=== PATIENT | female | born 1960 | race Caucasian/White ===

== ENCOUNTER 2016-11-20 20:36 | Emergency (ER) | payer OTHER ==
[~2016-11-20] VITALS: Ht 157.5 cm; Wt 54.5 kg
[2016-11-20 20:41] VITALS: BP 128/76; PULSE 107; RESP 16; O2SAT 96
[2016-11-20] MEDS ORDERED: SODIUM CHLOR 0.9% 1000 ML INJ 1,000 ML IV SCH (20:45)
[2016-11-20 20:51] VITALS: O2SAT 98
[2016-11-20] MEDS: SODIUM CHLORIDE 0.9% FLUSH 5 ML FLUSH IV FLUSH PRN (21:03)
--- NOTE | 2016-11-20 21:21 | RADRPT ---
EXAM DATE/TIME: 11/20/2016 21:07 [facility] COMPARISON: No previous studies available for comparison. INDICATIONS : Syncope, possible overdose. MEDICAL HISTORY : Unobtainable. SURGICAL HISTORY : Unobtainable. ENCOUNTER: Initial ACUITY: PAIN SCORE: Non-responsive. LOCATION: Bilateral chest FINDINGS: A single view of the chest demonstrates the lungs to be symmetrically aerated without evidence of mas s, infiltrate or effusion. The cardiomediastinal contours are unremarkable. Osseous structures are intact. CONCLUSION: No evidence of acute cardiopulmonary disease. Jose G Christy MD on November 20, 2016 at 21:19 Board Certified Radiologist. This report was verified electronically.
[2016-11-20 21:29] LABS: APTT (PATIENT) 28.8 SEC (24.3-30.1); PROTHROMBIN TIME - PATIENT 10.7 SEC (9.8-11.6)
[2016-11-20 21:33] LABS: AUTOMATED NEUTROPHIL # 7.3 TH/MM3 (1.8-7.7); BASOPHIL # 0.1 TH/MM3 (0-0.2); BASOPHIL % 0.7 % (0.0-2.0); EOSINOPHIL # 0.1 TH/MM3 (0-0.4); EOSINOPHIL % 1.3 % (0.0-4.0); HEMATOCRIT 36.2 % (35.0-46.0); HEMO FLAGS DIFF FINAL; LYMPH % 22.2 % (9.0-44.0); LYMPHOCYTE # 2.3 TH/MM3 (1.0-4.8); MEAN CELL VOLUME 97.7 FL (80.0-100.0); MEAN CORPUSCULAR HEMOGLOBIN 32.5 PG (27.0-34.0); MEAN CORPUSCULAR HGB CONC 33.3 % (32.0-36.0); MONO % 5.5 % (0.0-8.0); NEUT % 70.3 % (16.0-70.0); PLATELET COUNT 460 TH/MM3 (150-450); RED BLOOD COUNT 3.71 MIL/MM3 (4.00-5.30); RED CELL DISTRIBUTION WIDTH 14.2 % (11.6-17.2); WHITE BLOOD COUNT 10.4 TH/MM3 (4.0-11.0)
[2016-11-20 21:34] LABS: ALT (GPT) 28 U/L (10-53); ANION GAP 8 MEQ/L (5-15); AST (GOT) 32 U/L (15-37); BICARBONATE 20.4 MEQ/L (21.0-32.0); BLOOD UREA NITROGEN 11 MG/DL (7-18); CHLORIDE 109 MEQ/L (98-107); GLOMERULAR FILTRATION RATE 63 ML/MIN (>89); POTASSIUM 3.7 MEQ/L (3.5-5.1); SODIUM (NA) 137 MEQ/L (136-145)
--- NOTE | 2016-11-20 21:36 | PD ---
HPI . MENTAL status change Chief Complaint: Altered Mental Status Time Seen by Provider: 20:45 Travel History International Travel<30 days: No Contact w/Intl Traveler<30days: No Traveled to known affect area: No History of Present Illness HPI This patient presents to us by EMS for altered mental status. The only obtainable history was from EMS. We are not even sure of the patient's identity. EMS reports that the patient ambulated into a nearby restaurant and requested EMS. She then reportedly slid to the ground by table and sat there until EMS arrived. The restaurant workers report no trauma. EMS reports normal vital signs and a normal blood glucose prior to arrival. She was only responsive to sternal rub. [facility] Past Surgical History Surgical History: Unable to Obtain Social History Alcohol Use: No Tobacco Use: Yes Allergies-Medications (Allergen,Severity, Reaction): Coded Allergies: No Known Allergies (Unverified , 11/20/16) Review of Systems ROS Limitations: Unresponsive Physical Exam Narrative GENERAL: The patient is lying on the stretcher with her eyes closed. She does have some visible spontaneous movement in all 4 extremities. Her respirations are nonlabored. Her vital signs are unremarkable. Her clothing is noted to be wet and soiled. She has dirt and grime under her fingernails and toenails. SKIN: Warm and dry. Multiple scabs and abrasions with no sign of cellulitis or abscess. HEAD: Atraumatic. Normocephalic. EYES: Pupils equal and round. They are about 2 mm in diameter. Gaze is conjugate. ENT: No nasal bleeding or discharge. Mucous membranes pink and moist. The patient actively resists my attempts at opening her mouth. NECK: Trachea midline. Neck is supple. CARDIOVASCULAR: Regular rate and rhythm. Heart sounds are normal. RESPIRATORY: No accessory muscle use. Lungs are clear with full air movement throughout. She has normal oxygen saturation on room air. GASTROINTESTINAL: Abdomen soft, non-tender, nondistended. Bowel sounds are present. MUSCULOSKELETAL: No obvious deformities. No edema. NEUROLOGICAL: Apparently asleep. She resists any passive motion of all muscle groups. She has no contractures. PSYCHIATRIC: Unable to assess. Data Data Last Documented VS Vital Signs Date Time Temp Pulse Resp B/P Pulse Ox O2 Delivery O2 Flow Rate FiO2 11/20/16 23:16 77 16 117/68 98 Room Air Orders Electrocardiogram (11/20/16 20:45) Ammonia (11/20/16 20:45) Complete Blood Count With Diff (11/20/16 20:45) Comprehensive Metabolic Panel (11/20/16 20:45) Creatine Kinase (Cpk) (11/20/16 20:45) Prothrombin Time / Inr (Pt) (11/20/16 20:45) Act Partial Throm Time (Ptt) (11/20/16 20:45) Troponin I (11/20/16 20:45) Urinalysis - C+S If Indicated (11/20/16 20:45) Lactic Acid Sepsis Protocol (11/20/16 20:45) Blood Culture (11/20/16 20:45) Chest, Single Ap (11/20/16 20:45) Ct Brain W/O Iv Contrast(Rout) (11/20/16 20:45) Ecg Monitoring (11/20/16 20:45) Iv Access Insert/Monitor (11/20/16 20:45) Oximetry (11/20/16 20:45) Urinary Catheter Insert/Apply (11/20/16 20:45) Sodium Chloride 0.9% Flush (Ns Flush) (11/20/16 20:45) Sodium Chlor 0.9% 1000 Ml Inj (Ns 1000 M (11/20/16 20:45) Drug Screen, Random Urine (11/20/16 20:45) Alcohol (Ethanol) (11/20/16 20:45) Urine Culture (11/20/16 21:15) Ceftriaxone Inj (Rocephin Inj) (11/20/16 23:45) Labs Laboratory Tests Test 11/20/16 11/20/16 20:50 21:15 White Blood Count 10.4 TH/MM3 Red Blood Count 3.71 MIL/MM3 Hemoglobin 12.1 GM/DL Hematocrit 36.2 % Mean Corpuscular Volume 97.7 FL Mean Corpuscular Hemoglobin 32.5 PG Mean Corpuscular Hemoglobin 33.3 % Concent Red Cell Distribution Width 14.2 % Platelet Count 460 TH/MM3 Mean Platelet Volume 7.6 FL Neutrophils (%) (Auto) 70.3 % Lymphocytes (%) (Auto) 22.2 % Monocytes (%) (Auto) 5.5 % Eosinophils (%) (Auto) 1.3 % Basophils (%) (Auto) 0.7 % Neutrophils # (Auto) 7.3 TH/MM3 Lymphocytes # (Auto) 2.3 TH/MM3 Monocytes # (Auto) 0.6 TH/MM3 Eosinophils # (Auto) 0.1 TH/MM3 Basophils # (Auto) 0.1 TH/MM3 CBC Comment DIFF FINAL Differential Comment Prothrombin Time 10.7 SEC Prothromb Time International 1.0 RATIO Ratio Activated Partial 28.8 SEC Thromboplast Time Sodium Level 137 MEQ/L Potassium Level 3.7 MEQ/L Chloride Level 109 MEQ/L Carbon Dioxide Level 20.4 MEQ/L Anion Gap 8 MEQ/L Blood Urea Nitrogen 11 MG/DL Creatinine 0.79 MG/DL Estimat Glomerular Filtration 63 ML/MIN Rate Random Glucose 97 MG/DL Lactic Acid Level 1.4 mmol/L Calcium Level 7.7 MG/DL Total Bilirubin 0.4 MG/DL Aspartate Amino Transf 32 U/L (AST/SGOT) Alanine Aminotransferase 28 U/L (ALT/SGPT) Alkaline Phosphatase 80 U/L Ammonia 24 MCMOL/L Total Creatine Kinase 78 U/L Troponin I LESS THAN 0.02 NG/ML Total Protein 7.6 GM/DL Albumin 3.0 GM/DL Ethyl Alcohol Level 14 MG/DL Urine Color LIGHT-YELLOW Urine Turbidity CLEAR Urine pH 5.5 Urine Specific [place] 1.003 Urine Protein NEG mg/dL Urine Glucose (UA) NEG mg/dL Urine Ketones NEG mg/dL Urine Occult Blood NEG Urine Nitrite POS Urine Bilirubin NEG Urine Urobilinogen LESS THAN 2.0 MG/DL Urine Leukocyte Esterase MOD Urine WBC 7 /hpf Urine Squamous Epithelial 1 /hpf Cells Microscopic Urinalysis Comment CATH-CULTURE IND MDM Medical Decision Making Medical Screen Exam Complete: Yes Emergency Medical Condition: Yes Medical Record Reviewed: Yes (I reviewed the medical records for the person whose name is on the prescription bottles that were found in her bag. If she is the same patient, she was recently admitted to the hospital for cellulitis of the right foot. She has an underlying history of hepatitis C, COPD, bipolar disorder and homelessness.) Differential Diagnosis Differential diagnosis of altered mental status includes but is not limited to infection, electrolyte abnormality, neurological event, intoxication Narrative Course This is an apparent homeless patient who presents to us via EMS for altered mental status. History is unobtainable. Her vital signs are unremarkable. She is having no respiratory depression. She has no focal neurological deficits. CBC & BMP Diagram 11/20/16 20:50 LFTs are normal. CK and troponin are normal. Lactic acid level is 1.2. Alcohol level is 14. UA is positive for UTI. The etiology of her altered mental status has not yet been discovered. Last Impressions Head CT 11/20/162044 Signed Impressions: Service Date/Time: Sunday, November 20, 2016 23:58 - CONCLUSION: 1. Cortical volume loss. No acute intracranial abnormalities. Oracio Elliott MD Chest X-Ray 11/20/162044 Signed Impressions: Service Date/Time: Sunday, November 20, 2016 21:07 - CONCLUSION: No evidence of acute cardiopulmonary disease. Jose G Christy MD I have rechecked this patient several times. She does not awaken to shaking. She continues to have normal vital signs and nonlabored respirations. I really think that she's just asleep. We will continue to observe her in the emergency department. I will not admit her to the hospital just yet. I have discussed the case with her primary nurse. The nurse reports that the patient has been shifting herself on the bed normally. The nurse also believes that there is no acute medical problem. Critical Care Narrative Aggregate critical care time was 45 minutes. Time to perform other separately billable procedures was not included in the critical care time. My time did not include minutes spent treating any other patients simultaneously or on activities that did not directly contribute to the patient's treatment. The services I provided to this patient were to treat and/or prevent clinically significant deterioration due to altered mental status I provided critical care services requiring my management, as noted below: Chart data review, documentation time, medication orders and management, vital sign assessments/reviewing monitor data, ordering and reviewing lab tests, ordering and interpreting/reviewing x-rays and diagnostic studies, care of the patient and discussion of the patient with the admitting physicians Diagnosis Primary Impression: Altered mental status Qualified Code: R40.2431 - Maize coma scale total score 3-8, in the field ( EMT or ambulance) Additional Impression: Urinary tract infection Qualified Code: N30.00 - Acute cystitis without hematuria Disposition: DISCHARGE HOME Condition: Stable Hannah Castillo MD Nov 20, 2016 21:36
[2016-11-20 21:37] LABS: ALCOHOL 14 MG/DL (0-5)
[2016-11-20 21:38] LABS: ALKALINE PHOSPHATASE 80 U/L (45-117); TOTAL BILIRUBIN ADULT 0.4 MG/DL (0.2-1.0)
[2016-11-20 21:39] LABS: CREATINE KINASE 78 U/L (26-192)
[2016-11-20 21:42] LABS: BLOOD, URINE NEG (NEG); GLUCOSE,URINE NEG (NEG); KETONE, URINE NEG (NEG); PH, URINE 5.5 (5.0-8.5); SQUAMOUS EPITHELIAL CELL URINE 1 /hpf (0-5); URINE COLOR LIGHT-YELLOW (YELLW/STRAW)
[2016-11-20 21:43] LABS: COMMENT (UR) CATH-CULTURE IND; CULTURE IF INDICATED CATH CULTURE IND; NITRITE,URINE POS (NEG)
[2016-11-20 23:16] VITALS: BP 117/68; PULSE 77; RESP 16; O2SAT 98
[2016-11-20] MEDS ORDERED: cefTRIAXone INJ 1,000 MG in SODIUM CHLORIDE 0.9% INJ 100 ML IV ONE (23:45)
--- NOTE | 2016-11-21 00:18 | RADRPT ---
EXAM DATE/TIME: 11/20/2016 23:58 [facility] COMPARISON: No previous studies available for comparison. INDICATIONS : Altered mental status; possible overdose. RADIATION DOSE: 56.35 CTDIvol (mGy) MEDICAL HISTORY : Non-responsive. SURGICAL HISTORY : Non-responsive. ENCOUNTER: Initial ACUITY: 1 day PAIN SCALE: Non-responsive LOCATION: cranial TECHNIQUE: Multiple contiguous axial images were obtained of the head. Using automated exposure control and adj ustment of the mA and/or kV according to patient size, radiation dose was kept as low as reasonably a chievable to obtain optimal diagnostic quality images. DICOM format image data is available electro nically for review and comparison. FINDINGS: CEREBRUM: The ventricles are normal for age. No evidence of midline shift, mass lesion, hemorrhage or acute in farction. No extra-axial fluid collections are seen. POSTERIOR FOSSA: The cerebellum and brainstem are intact. The 4th ventricle is midline. The cerebellopontine angle i s unremarkable. EXTRACRANIAL: The visualized portion of the orbits is intact. SKULL: The calvaria is intact. No evidence of skull fracture. CONCLUSION: 1. Cortical volume loss. No acute intracranial abnormalities. Oracio Elliott MD on November 21, 2016 at 0:14 Board Certified Radiologist. This report was verified electronically.
[2016-11-21] MEDS: SODIUM CHLORIDE 0.9% FLUSH 5 ML FLUSH IV FLUSH PRN (01:30)
--- NOTE | 2016-11-21 15:26 | EKG ---
Date Performed: 11/20/2016 Time Performed: 21:02:08 PTAGE: 89 years EKG: Sinus rhythm POSSIBLE LEFT ATRIAL ENLARGEMENT BORDERLINE ECG NO PREVIOUS TRACING DOCTOR: Kiran Harris Interpretating Date/Time 11/21/2016 15:25:50
== END 2016-11-21 08:44 | disposition home or self-care (01) ==
LOC: EDBD 20:36 → NEPC 20:36
DX: R41.82 Altered mental status, unspecified (principal); N39.0 Urinary tract infection, site not specified; B96.20 Unspecified Escherichia coli [E. coli] as the cause of diseases classified elsewhere; J44.9 Chronic obstructive pulmonary disease, unspecified; F31.9 Bipolar disorder, unspecified
CPT/HCPCS: 51702; 70450; 71010; 80053; 80307; 81001; 82140; 82550; 83605; 84484; 85025; 85610; 85730; 87040; 87077; 87086; 87186; 93005; 96361; 96374; 99291; J0696; J7030

== ENCOUNTER 2016-11-23 16:43 | Emergency (ER) | payer SELFPAY ==
[~2016-11-23] VITALS: Ht 170.2 cm; Wt 52.0 kg
[2016-11-23 16:45] VITALS: BP 144/83; PULSE 85; RESP 16; TEMP 98; O2SAT 98
--- NOTE | 2016-11-23 17:56 | PD ---
Physical Exam Date Seen by Provider: Nov 23, 2016 Time Seen by Provider: 17:53 Narrative 56 y/o female with Hx. Migraine and Seizure Disorder here with worsening KAUFFMAN for the past 3 days. Last Seizure about a month ago. Takes Tegratol for Migraines. KAUFFMAN seems to improve at night after her BP meds are taken. KAUFFMAN 9/10. + nausea. No vomiting. Head CT ordered. Tylenol Ordered. Vital Signs reviewed. Patient is Stable and awaiting Bed Placement. Data Data Last Documented VS Vital Signs Date Time Temp Pulse Resp B/P (MAP) Pulse Ox O2 Delivery O2 Flow Rate FiO2 11/23/16 16:45 98.0 85 16 144/83 (103) 98 Room Air [facility] Medical Record Reviewed: Yes Supervised Visit with FREDERICK: Yes Condition: Stable Edgar Jean Nov 23, 2016 17:56
[2016-11-23] MEDS ORDERED: ACETAMINOPHEN 500 MG CPLT PO ONE (18:00)
--- NOTE | 2016-11-23 18:47 | RADRPT ---
EXAM DATE/TIME: 11/23/2016 18:23 [facility] COMPARISON: CT BRAIN W/O CONTRAST, November 20, 2016, 23:58. INDICATIONS : Cephalgia; dizziness. RADIATION DOSE: 56.35 CTDIvol (mGy) MEDICAL HISTORY : None SURGICAL HISTORY : None. ENCOUNTER: Initial ACUITY: 1 day PAIN SCALE: 5/10 LOCATION: cranial TECHNIQUE: Multiple contiguous axial images were obtained of the head. Using automated exposure control and adj ustment of the mA and/or kV according to patient size, radiation dose was kept as low as reasonably a chievable to obtain optimal diagnostic quality images. DICOM format image data is available electro nically for review and comparison. FINDINGS: CEREBRUM: The ventricles remain prominent for age. No evidence of midline shift, mass lesion, hemorrhage or ac hoopa infarction. No extra-axial fluid collections are seen. POSTERIOR FOSSA: The cerebellum and brainstem are intact. The 4th ventricle is midline. The cerebellopontine angle i s unremarkable. EXTRACRANIAL: The visualized portion of the orbits is intact. SKULL: The calvaria is intact. No evidence of skull fracture. CONCLUSION: No acute disease. No significant change has occurred. Joe Payne MD on November 23, 2016 at 18:45 Board Certified Radiologist. This report was verified electronically.
[2016-11-23] MEDS ORDERED: SERO400T PO (19:33)
[2016-11-23] MEDS ORDERED: GABA300C5 PO (19:33)
[2016-11-23] MEDS ORDERED: SODIUM CHLOR 0.9% 1000 ML INJ 1,000 ML IV SCH (19:42)
[2016-11-23] MEDS ORDERED: SODIUM CHLORIDE 0.9% FLUSH 10 ML FLUSH IV FLUSH PRN (19:45)
[2016-11-23] MEDS ORDERED: diphenhydrAMINE HCL 50 MG/ML VIAL IVP ONE (20:00)
[2016-11-23] MEDS ORDERED: METOCLOPRAMIDE HCL 10 MG/2 ML VIAL IVP ONE (20:00)
[2016-11-23] MEDS ORDERED: DEXAMETHASONE SOD PHOS 20 MG/5 ML VIAL IV PUSH ONE (20:00)
--- NOTE | 2016-11-23 20:19 | PD ---
HPI Chief Complaint: Fall Time Seen by Provider: 19:41 Travel History International Travel<30 days: No Contact w/Intl Traveler<30days: No Traveled to known affect area: No History of Present Illness HPI Patient is a 56-year-old female who presents to emergency room with complaints of a headache. Patient reports that she has history of migraine headaches, COPD , seizure disorder, reports that for the past 2 weeks, she is having having a pounding sensation to the front of her head. Patient reports that she has photophobia with her symptoms, that she has nausea with no vomiting with her symptoms. Patient reports that she does take Tegretol for her migraines. She did not take any Motrin or acetaminophen for relief of her symptoms. Patient reports that yesterday, she felt lightheaded and dizzy and fell to the ground. Patient is unsure if she had a seizure episode yesterday. Patient denies any fall today. She currently is not on any anticoagulants. She is being followed by Dr. Alexandre for migraine headaches as well as her seizure disorders and COPD. [facility] Past Medical History Asthma: Yes COPD: Yes Migraines: Yes Past Surgical History Surgical History: No Previous Surgery Social History Alcohol Use: No Tobacco Use: Yes Allergies-Medications (Allergen,Severity, Reaction): Coded Allergies: No Known Allergies (Unverified , 11/23/16) Reported Meds & Prescriptions Reported Meds & Active Scripts Active Reported Seroquel (Quetiapine Fumarate) 400 Mg Tab 500 Mg PO DAILY Gabapentin 300 Mg Cap 300 Mg PO HS Review of Systems General / Constitutional: No: Fever Eyes: No: Visual changes HENT: Positive: Headaches, Lightheadedness Cardiovascular: No: Chest Pain or Discomfort Respiratory: No: Shortness of Breath Gastrointestinal: Positive: Nausea, No: Vomiting, Abdominal Pain Genitourinary: No: Dysuria Musculoskeletal: No: Pain Skin: No Rash Neurologic: Positive: Dizziness, Headache, No: Weakness Psychiatric: No: Depression Endocrine: No: Polydipsia Hematologic/Lymphatic: No: Easy Bruising Physical Exam Narrative GENERAL: No acute distress, nontoxic SKIN: Focused skin assessment warm/dry. HEAD: Atraumatic. Normocephalic. EYES: Pupils equal and round. No scleral icterus. No injection or drainage. ENT: No nasal bleeding or discharge. Mucous membranes pink and moist. NECK: Trachea midline. No JVD. CARDIOVASCULAR: Regular rate and rhythm. No murmur appreciated. RESPIRATORY: No accessory muscle use. Clear to auscultation. Breath sounds equal bilaterally. GASTROINTESTINAL: Abdomen soft, non-tender, nondistended. Hepatic and splenic margins not palpable. MUSCULOSKELETAL: No obvious deformities. No clubbing. No cyanosis. No edema. NEUROLOGICAL: Awake and alert. No obvious cranial nerve deficits. Motor grossly within normal limits. Normal speech. CN 2-12 grossly intact with no neurological deficits PSYCHIATRIC: Appropriate mood and affect; insight and judgment normal. Data Data Last Documented VS Vital Signs Date Time Temp Pulse Resp B/P (MAP) Pulse Ox O2 Delivery O2 Flow Rate FiO2 11/23/16 16:45 98.0 85 16 144/83 (103) 98 Room Air Orders Orders Ct Brain W/O Iv Contrast(Rout) (11/23/16 17:56) Acetaminophen (Tylenol) (11/23/16 18:00) Complete Blood Count With Diff (11/23/16 19:42) Comprehensive Metabolic Panel (11/23/16 19:42) Prothrombin Time / Inr (Pt) (11/23/16 19:42) Act Partial Throm Time (Ptt) (11/23/16 19:42) Iv Access Insert/Monitor (11/23/16 19:42) Ecg Monitoring (11/23/16 19:42) Oximetry (11/23/16 19:42) Sodium Chlor 0.9% 1000 Ml Inj (Ns 1000 M (11/23/16 19:42) Sodium Chloride 0.9% Flush (Ns Flush) (11/23/16 19:45) Dexamethasone Inj (Decadron Inj) (11/23/16 20:00) Diphenhydramine Inj (Benadryl Inj) (11/23/16 20:00) Metoclopramide Inj (Reglan Inj) (11/23/16 20:00) Ketorolac Inj (Toradol Inj) (11/23/16 21:30) Potassium Chloride (Kcl) (11/23/16 21:30) Labs Laboratory Tests Test 11/23/16 20:09 White Blood Count 7.3 TH/MM3 Red Blood Count 3.98 MIL/MM3 Hemoglobin 12.9 GM/DL Hematocrit 38.0 % Mean Corpuscular Volume 95.7 FL Mean Corpuscular Hemoglobin 32.5 PG Mean Corpuscular Hemoglobin Concent 34.0 % Red Cell Distribution Width 13.8 % Platelet Count 600 TH/MM3 Mean Platelet Volume 8.0 FL Neutrophils (%) (Auto) 59.2 % Lymphocytes (%) (Auto) 31.5 % Monocytes (%) (Auto) 6.3 % Eosinophils (%) (Auto) 1.9 % Basophils (%) (Auto) 1.1 % Neutrophils # (Auto) 4.3 TH/MM3 Lymphocytes # (Auto) 2.3 TH/MM3 Monocytes # (Auto) 0.5 TH/MM3 Eosinophils # (Auto) 0.1 TH/MM3 Basophils # (Auto) 0.1 TH/MM3 CBC Comment DIFF FINAL Differential Comment Prothrombin Time 10.5 SEC Prothromb Time International Ratio 1.0 RATIO Activated Partial Thromboplast Time 30.5 SEC Blood Urea Nitrogen 8 MG/DL Creatinine 0.73 MG/DL Random Glucose 77 MG/DL Total Protein 8.0 GM/DL Albumin 3.4 GM/DL Calcium Level 8.9 MG/DL Alkaline Phosphatase 82 U/L Aspartate Amino Transf (AST/SGOT) 50 U/L Alanine Aminotransferase (ALT/SGPT) 37 U/L Total Bilirubin 0.4 MG/DL Sodium Level 140 MEQ/L Potassium Level 3.8 MEQ/L Chloride Level 107 MEQ/L Carbon Dioxide Level 24.7 MEQ/L Anion Gap 8 MEQ/L Estimat Glomerular Filtration Rate 82 ML/MIN MDM Medical Decision Making Medical Screen Exam Complete: Yes Emergency Medical Condition: Yes Interpretation(s) Vital Signs Date Time Temp Pulse Resp B/P (MAP) Pulse Ox O2 Delivery O2 Flow Rate FiO2 11/23/16 16:45 98.0 85 16 144/83 (103) 98 Room Air Differential Diagnosis Differential includes migraine headache, cephalgia, intracranial hemorrhage, electrolyte abnormality, dehydration, seizure disorder Narrative Course Patient is a 56-year-old female who presents to emergency room with a migraine headache. She has persistent migraine headache for the past 2 weeks, reports that she has been taking her Tegretol with no relief of symptoms. It's photophobia with frontal headache with her symptoms. Patient reports that she had an episode yesterday where she fell to the ground as she felt dizzy, unsure she had a seizure episode. Patient with no seizure episode today. Patient reports that her migraine headache is similar to her previous symptoms, plan to obtain CT head, lab work. Will administer migraine cocktail. Vital Signs Date Time Temp Pulse Resp B/P (MAP) Pulse Ox O2 Delivery O2 Flow Rate FiO2 11/23/16 16:45 98.0 85 16 144/83 (103) 98 Room Air Laboratory Tests Test 11/23/16 20:09 White Blood Count 7.3 TH/MM3 (4.0-11.0) Red Blood Count 3.98 MIL/MM3 (4.00-5.30) Hemoglobin 12.9 GM/DL (11.6-15.3) Hematocrit 38.0 % (35.0-46.0) Mean Corpuscular Volume 95.7 FL (80.0-100.0) Mean Corpuscular Hemoglobin 32.5 PG (27.0-34.0) Mean Corpuscular Hemoglobin Concent 34.0 % (32.0-36.0) Red Cell Distribution Width 13.8 % (11.6-17.2) Platelet Count 600 TH/MM3 (150-450) Mean Platelet Volume 8.0 FL (7.0-11.0) Neutrophils (%) (Auto) 59.2 % (16.0-70.0) Lymphocytes (%) (Auto) 31.5 % (9.0-44.0) Monocytes (%) (Auto) 6.3 % (0.0-8.0) Eosinophils (%) (Auto) 1.9 % (0.0-4.0) Basophils (%) (Auto) 1.1 % (0.0-2.0) Neutrophils # (Auto) 4.3 TH/MM3 (1.8-7.7) Lymphocytes # (Auto) 2.3 TH/MM3 (1.0-4.8) Monocytes # (Auto) 0.5 TH/MM3 (0-0.9) Eosinophils # (Auto) 0.1 TH/MM3 (0-0.4) Basophils # (Auto) 0.1 TH/MM3 (0-0.2) CBC Comment DIFF FINAL Differential Comment Prothrombin Time 10.5 SEC (9.8-11.6) Prothromb Time International Ratio 1.0 RATIO Activated Partial Thromboplast Time 30.5 SEC (24.3-30.1) Blood Urea Nitrogen 8 MG/DL (7-18) Creatinine 0.73 MG/DL (0.50-1.00) Random Glucose 77 MG/DL (74-106) Total Protein 8.0 GM/DL (6.4-8.2) Albumin 3.4 GM/DL (3.4-5.0) Calcium Level 8.9 MG/DL (8.5-10.1) Alkaline Phosphatase 82 U/L (45-117) Aspartate Amino Transf (AST/SGOT) 50 U/L (15-37) Alanine Aminotransferase (ALT/SGPT) 37 U/L (10-53) Total Bilirubin 0.4 MG/DL (0.2-1.0) Sodium Level 140 MEQ/L (136-145) Potassium Level 3.8 MEQ/L (3.5-5.1) Chloride Level 107 MEQ/L (98-107) Carbon Dioxide Level 24.7 MEQ/L (21.0-32.0) Anion Gap 8 MEQ/L (5-15) Estimat Glomerular Filtration Rate 82 ML/MIN (>89) Ct of head: no acute disease Patient re-evaluated, reports that she is feeling much better at this time, she does still have a slight headache. Will give a dose toradol. I did review all labs and studies with patient in detail as well as all findings. Signs and symptoms of when to return to the ER was reviewed with patient in detail. Diagnosis Primary Impression: Cephalgia Qualified Codes: R51 - Headache Patient Instructions: General Instructions Additional Instructions: Please follow up with your primary care doctor in 2-3 days Return to ER as needed Return to ER if symptoms worsen of persist Disposition: 01 DISCHARGE HOME Condition: Stable Liset Tillman DO Nov 23, 2016 20:19
[2016-11-23 20:32] LABS: AUTOMATED NEUTROPHIL # 4.3 TH/MM3 (1.8-7.7); BASOPHIL # 0.1 TH/MM3 (0-0.2); BASOPHIL % 1.1 % (0.0-2.0); EOSINOPHIL # 0.1 TH/MM3 (0-0.4); EOSINOPHIL % 1.9 % (0.0-4.0); HEMO FLAGS DIFF FINAL; LYMPH % 31.5 % (9.0-44.0); LYMPHOCYTE # 2.3 TH/MM3 (1.0-4.8); MEAN CELL VOLUME 95.7 FL (80.0-100.0); MEAN CORPUSCULAR HEMOGLOBIN 32.5 PG (27.0-34.0); MONO % 6.3 % (0.0-8.0); NEUT % 59.2 % (16.0-70.0); PLATELET COUNT 600 TH/MM3 (150-450); RED BLOOD COUNT 3.98 MIL/MM3 (4.00-5.30); RED CELL DISTRIBUTION WIDTH 13.8 % (11.6-17.2); WHITE BLOOD COUNT 7.3 TH/MM3 (4.0-11.0)
[2016-11-23 20:47] LABS: APTT (PATIENT) 30.5 SEC (24.3-30.1); PROTHROMBIN TIME - PATIENT 10.5 SEC (9.8-11.6)
[2016-11-23 20:59] LABS: ANION GAP 8 MEQ/L (5-15); AST (GOT) 50 U/L (15-37); BICARBONATE 24.7 MEQ/L (21.0-32.0); BLOOD UREA NITROGEN 8 MG/DL (7-18); CHLORIDE 107 MEQ/L (98-107); GLOMERULAR FILTRATION RATE 82 ML/MIN (>89); POTASSIUM 3.8 MEQ/L (3.5-5.1); SODIUM (NA) 140 MEQ/L (136-145)
[2016-11-23 21:03] LABS: ALKALINE PHOSPHATASE 82 U/L (45-117); ALT (GPT) 37 U/L (10-53); TOTAL BILIRUBIN ADULT 0.4 MG/DL (0.2-1.0)
[2016-11-23] MEDS ORDERED: KETOROLAC TROMETHAMINE 30 MG/ML (IVP) VIAL IV PUSH ONE (21:30)
[2016-11-23] MEDS ORDERED: POTASSIUM CHLORIDE 10 MEQ CONTROLLED RELEASE TAB PO ONE (21:30)
== END 2016-11-23 22:47 | disposition home or self-care (01) ==
LOC: NEPC 16:43
DX: R51 Headache (principal); J44.9 Chronic obstructive pulmonary disease, unspecified; R42 Dizziness and giddiness; Z72.0 Tobacco use
CPT/HCPCS: 70450; 80053; 85025; 85610; 85730; 96361; 96374; 96375; 99285; J1100; J1200; J1885; J2765; J7030

== ENCOUNTER 2016-12-12 18:07 | Emergency (ER) | payer SELFPAY ==
[~2016-12-12] VITALS: Ht 170.2 cm; Wt 60.0 kg
[~2016-12-12 18:07] MED LIST: GABA300C5 PO; SERO400T PO
[2016-12-12 18:09] VITALS: BP 155/88; PULSE 85; RESP 20; TEMP 98.7; O2SAT 98
--- NOTE | 2016-12-12 18:40 | PD ---
Physical Exam Date Seen by Provider: Dec 12, 2016 Time Seen by Provider: 18:38 Data Data Last Documented VS Vital Signs Date Time Temp Pulse Resp B/P (MAP) Pulse Ox O2 Delivery O2 Flow Rate FiO2 12/12/16 18:09 98.7 85 20 155/88 (110) 98 Room Air MDM Supervised Visit with FREDERICK: No Narrative Course 56 YO F with complaint of 9/10 belly pain today. Endorses N/V and chills today. Vitals reviewed. Patient seen in triage, awaiting bed placement. Alvina Capellan Dec 12, 2016 18:40
[2016-12-12] MEDS ORDERED: LEVE500 PO (18:50)
--- NOTE | 2016-12-12 19:11 | PD ---
HPI Chief Complaint: GI Complaint Time Seen by Provider: 18:57 Travel History International Travel<30 days: No Contact w/Intl Traveler<30days: No Traveled to known affect area: No History of Present Illness HPI 56 year old white female presents to emergency department accompanied by her significant other for evaluation of nausea and vomiting. The patient states that she may have eaten something that may have been bad. Her significant other states that he's felt somewhat nauseous but has not been vomiting. They state they're homeless. They live in a tent. There seeking nursing home. The patient is made aware that there will be given medication for vomiting and will be discharged. They're informed that the [facility] masses free today and will take him to a nursing home. The patient now states that she really does not feel sick and that this was a malingering action to obtain a domicile for the evening. They state that they would rather take the free [facility] and go to a nursing home [facility] Past Medical History Asthma: Yes Depression: Yes COPD: Yes Hepatitis: Yes (C) Migraines: Yes ?: Not Past Surgical History Surgical History: No Previous Surgery Hysterectomy: Yes Social History Alcohol Use: Yes Tobacco Use: Yes Substance Use: No Allergies-Medications (Allergen,Severity, Reaction): Coded Allergies: No Known Allergies (Unverified , 12/12/16) Reported Meds & Prescriptions Reported Meds & Active Scripts Active Reported Keppra (Levetiracetam) 500 Mg Tab 500 Mg PO BID Seroquel (Quetiapine Fumarate) 400 Mg Tab 500 Mg PO DAILY Gabapentin 300 Mg Cap 300 Mg PO HS Review of Systems Except as stated in HPI: all other systems reviewed are Neg Physical Exam Narrative GENERAL: This is a well-nourished, well-developed patient, in no apparent distress. SKIN: No rashes, ecchymoses or lesions. Warm and dry. HEAD: Atraumatic. Normocephalic. EYES: PERRL, EOMI, no discharge or injection. No scleral icterus. EARS: Clear NOSE: Nasal turbinates appear normal. THROAT: Mucosa pink and moist. Airway patent. NECK: Trachea midline. supple, moves head freely. LUNGS: Clear to auscultation. CV: Regular in rhythm. ABDOMEN: Soft nontender. EXT: No clubbing cyanosis or edema. Data Data Last Documented VS Vital Signs Date Time Temp Pulse Resp B/P (MAP) Pulse Ox O2 Delivery O2 Flow Rate FiO2 12/12/16 18:09 98.7 85 20 155/88 (110) 98 Room Air Orders Orders Sodium Chlor 0.9% 1000 Ml Inj (Ns 1000 M (12/12/16 19:15) Ondansetron Inj (Zofran Inj) (12/12/16 19:15) Urinalysis - C+S If Indicated (12/12/16 19:01) MDM Medical Decision Making Medical Screen Exam Complete: Yes Emergency Medical Condition: No Medical Record Reviewed: No Differential Diagnosis Differential diagnoses: Food poisoning, dehydration, malingering Narrative Course The patient after being evaluated now states that she was malingering for a domicile for the night. They're made aware that the [facility] buses freely and they will be taken to a nursing home. They have agreed to leave at this point and did not receive any additional care. Diagnosis Primary Impression: medical clearance exam Patient Instructions: General Instructions Additional Instructions: Rest. Take [facility] bus to nursing home. Return to the ER for medical problems. Med/Other Pt SpecificInfo: No Meds Exist/No RX given Disposition: 01 DISCHARGE HOME Condition: Stable Oracio Merino Dec 12, 2016 19:11
[2016-12-12] MEDS ORDERED: ONDANSETRON HCL 4 MG/2 ML VIAL IV PUSH ONE (19:15)
[2016-12-12] MEDS ORDERED: SODIUM CHLOR 0.9% 1000 ML INJ 1,000 ML IV ONE (19:15)
== END 2016-12-12 19:48 | disposition home or self-care (01) ==
LOC: NEPD 18:07
DX: R11.2 Nausea with vomiting, unspecified (principal); J45.909 Unspecified asthma, uncomplicated; F32.9 Major depressive disorder, single episode, unspecified; J44.9 Chronic obstructive pulmonary disease, unspecified; Z86.19 Personal history of other infectious and parasitic diseases; Z72.0 Tobacco use; Z76.5 Malingerer [conscious simulation]; Z59.0 Homelessness; Z79.899 Other long term (current) drug therapy
CPT/HCPCS: 99281

== ENCOUNTER 2016-12-29 11:04 | Emergency (ER) | payer SELFPAY ==
[~2016-12-29] VITALS: Ht 170.2 cm; Wt 50.0 kg
[~2016-12-29 11:04] MED LIST changes: +LEVE500 PO
[2016-12-29 11:08] VITALS: BP 101/75; PULSE 104; RESP 16; TEMP 99.9; O2SAT 97
--- NOTE | 2016-12-29 11:11 | PD ---
Physical Exam Time Seen by Provider: 11:09 Narrative This child female presents with complaint of generalized soreness to her body for the last 3-4 days. Reports subjective fevers but has not taken her temperature to reported Xanax. Denies vomiting. She woke up this morning with blood on her pillow and doesn't know where came from. Denies current IV drug use. Patient seen in triage. Vital signs reviewed. Patient taken to medical bed. Data Data Last Documented VS Vital Signs Date Time Temp Pulse Resp B/P (MAP) Pulse Ox O2 Delivery O2 Flow Rate FiO2 12/29/16 11:08 99.9 104 16 101/75 (84) 97 MDM Supervised Visit with FREDERICK: Lillian Bolanos Dec 29, 2016 11:11
--- NOTE | 2016-12-29 11:40 | PD ---
HPI . chronic skin wounds Chief Complaint: Skin Problem Time Seen by Provider: 11:16 Travel History International Travel<30 days: No Contact w/Intl Traveler<30days: No Traveled to known affect area: No History of Present Illness HPI 56 yr old female well known to me from the [facility] here with sores to her entire body that have been present for quite some time. She denies any fever or chills. She stayed at a motel for the past 2 days, but usually sleeps in the streets. She has no other concerns. History Social History Alcohol Use: Yes Tobacco Use: Yes Allergies-Medications (Allergen,Severity, Reaction): Coded Allergies: No Known Allergies (Unverified , 12/12/16) Reported Meds & Prescriptions Reported Meds & Active Scripts Active Reported Keppra (Levetiracetam) 500 Mg Tab 500 Mg PO BID Seroquel (Quetiapine Fumarate) 400 Mg Tab 500 Mg PO DAILY Gabapentin 300 Mg Cap 300 Mg PO HS Review of Systems General / Constitutional: No: Fever Eyes: No: Visual changes HENT: No: Headaches Cardiovascular: No: Chest Pain or Discomfort Respiratory: No: Shortness of Breath Gastrointestinal: No: Abdominal Pain Genitourinary: No: Dysuria Musculoskeletal: No: Pain Skin: Positive Lesions, No Rash Neurologic: No: Weakness Psychiatric: No: Depression Endocrine: No: Polydipsia Hematologic/Lymphatic: No: Easy Bruising Physical Exam Narrative GENERAL: AAOx3, NAD, ambulatory SKIN: Warm and dry.multiple healed excoriations scattered over body without any evidence of acute infection HEAD: Atraumatic. Normocephalic. EYES: Pupils equal and round. No scleral icterus. No injection or drainage. ENT: No nasal bleeding or discharge. Mucous membranes pink and moist. NECK: Trachea midline. No JVD. CARDIOVASCULAR: Regular rate and rhythm. RESPIRATORY: No accessory muscle use. Clear to auscultation. Breath sounds equal bilaterally. GASTROINTESTINAL: Abdomen soft, non-tender, nondistended. Hepatic and splenic margins not palpable. MUSCULOSKELETAL: Extremities without clubbing, cyanosis, or edema. No obvious deformities. NEUROLOGICAL: Awake and alert. No obvious cranial nerve deficits. Motor grossly within normal limits. Five out of 5 muscle strength in the arms and legs. Normal speech. PSYCHIATRIC: Appropriate mood and affect; insight and judgment normal. Data Data Last Documented VS Vital Signs Date Time Temp Pulse Resp B/P (MAP) Pulse Ox O2 Delivery O2 Flow Rate FiO2 12/29/16 11:08 99.9 104 16 101/75 (84) 97 MDM Medical Screen Exam Complete: Yes Emergency Medical Condition: No Differential Diagnosis chronic skin wounds, bed bug bites, less likely cellulitis Narrative Course A medical screening exam was performed: At the time of evaluation the presenting medical condition was determined not to be of an emergent nature. The patient was given the option of receiving additional care, but declined. Patient was given options for additional community resources from which to obtain care. The Patient Has Been advised to seek medical attention for their presenting complaint. The patient has been advised to return to the ER at any time if an emergent condition develops. I discussed with Audra MACE in the community clinic, who will see the patient today. Primary Impression: Encounter for medical screening examination Condition: Stable Sharona Zavala Dec 29, 2016 11:40
== END 2016-12-29 11:31 | disposition left against medical advice (07) ==
LOC: NEPD 11:04
DX: Z00.00 Encounter for general adult medical examination without abnormal findings (principal)
CPT/HCPCS: 99281

== ENCOUNTER 2017-01-06 15:08 | Emergency (ER) | payer SELFPAY ==
[~2017-01-06] VITALS: Ht 152.4 cm; Wt 50.0 kg
[2017-01-06 15:09] VITALS: BP 120/71; PULSE 95; RESP 20; TEMP 98.8; O2SAT 100
--- NOTE | 2017-01-06 15:14 | PD ---
Physical Exam Date Seen by Provider: Jan 06, 2017 Time Seen by Provider: 15:12 Narrative 56 year old female that presents to the ED for wound to arms and legs. Pain is severe. Pains to the lower legs and arms. Has been taking antibiotics with minimal relief. Told she has bacterial infection. No fevers. Going on for some weeks. Follows with the community clinic per our records. Vitals stable in triage. Awaiting bed placement. Data Data Last Documented VS Vital Signs Date Time Temp Pulse Resp B/P (MAP) Pulse Ox O2 Delivery O2 Flow Rate FiO2 01/06/17 15:09 98.8 95 20 120/71 (87) 100 Room Air [facility] Medical Record Reviewed: Yes Supervised Visit with FREDERICK: No Antoine Curry Jan 06, 2017 15:14
[2017-01-06 15:54] LABS: BASOPHIL # 0.1 TH/MM3 (0-0.2); BASOPHIL % 0.8 % (0.0-2.0); EOSINOPHIL # 0.2 TH/MM3 (0-0.4); EOSINOPHIL % 2.2 % (0.0-4.0); HEMATOCRIT 33.3 % (35.0-46.0); HEMO FLAGS DIFF FINAL; LYMPH % 23.4 % (9.0-44.0); LYMPHOCYTE # 1.7 TH/MM3 (1.0-4.8); MEAN CELL VOLUME 94.1 FL (80.0-100.0); MEAN CORPUSCULAR HEMOGLOBIN 32.2 PG (27.0-34.0); MEAN CORPUSCULAR HGB CONC 34.2 % (32.0-36.0); MONO % 4.8 % (0.0-8.0); NEUT % 68.8 % (16.0-70.0); PLATELET COUNT 698 TH/MM3 (150-450); RED BLOOD COUNT 3.54 MIL/MM3 (4.00-5.30); RED CELL DISTRIBUTION WIDTH 13.3 % (11.6-17.2); WHITE BLOOD COUNT 7.2 TH/MM3 (4.0-11.0)
--- NOTE | 2017-01-06 16:05 | PD ---
HPI Chief Complaint: Skin Problem Time Seen by Provider: 16:05 Travel History International Travel<30 days: No Contact w/Intl Traveler<30days: No Traveled to known affect area: No History of Present Illness HPI 56-year-old female presents to the emergency department for evaluation of worsening wounds on her left lower extremity. Patient states that they have been there almost a month, worsening over last 2 weeks. She has been treated with Bactrim and he feels they have not improved. They extended to her buttocks and she has some of her upper extremities. She denies fever or chills. She does live homeless and homeless camp at this time. She does not recall any new exposures. She recalls no known insect bites. She does state she has difficult time keeping the wounds clean due to where she is living. She has no other symptoms to report at this time. [facility] Past Medical History Asthma: Yes Depression: Yes COPD: Yes Hepatitis: Yes (C) Migraines: Yes ?: Not Past Surgical History Hysterectomy: Yes Social History Alcohol Use: Yes Tobacco Use: Yes Substance Use: No Allergies-Medications (Allergen,Severity, Reaction): Coded Allergies: No Known Allergies (Unverified , 01/06/17) Reported Meds & Prescriptions Reported Meds & Active Scripts Active Reported Gabapentin 300 Mg Cap 300 Mg PO TID Keppra (Levetiracetam) 500 Mg Tab 1,000 Mg PO BID Seroquel (Quetiapine Fumarate) 400 Mg Tab 500 Mg PO HS Review of Systems Except as stated in HPI: all other systems reviewed are Neg Physical Exam Narrative GENERAL: Unkempt female patient, lying in bed, no acute distress. SKIN: Focused skin assessment warm/dry. Multiple, scattered ulcerated cellulitic eschars varying in size on the left lower extremity extending up to the buttock. There is no crepitus. HEAD: Atraumatic. Normocephalic. EYES: Pupils equal and round. No scleral icterus. No injection or drainage. ENT: No nasal bleeding or discharge. Mucous membranes pink and moist. NECK: Trachea midline. No JVD. CARDIOVASCULAR: Regular rate and rhythm. No murmur appreciated. RESPIRATORY: No accessory muscle use. Clear to auscultation. Breath sounds equal bilaterally. GASTROINTESTINAL: Abdomen soft, non-tender, nondistended. Hepatic and splenic margins not palpable. MUSCULOSKELETAL: No obvious deformities. No clubbing. There is mild erythema of the left distal lower extremity surrounding the wounds with associated mild edema. Distal pulses are palpable. Cap refill within normal limits.. NEUROLOGICAL: Awake and alert. No obvious cranial nerve deficits. Motor grossly within normal limits. Normal speech. Data Data Last Documented VS Vital Signs Date Time Temp Pulse Resp B/P (MAP) Pulse Ox O2 Delivery O2 Flow Rate FiO2 01/06/17 16:10 89 24 129/75 (93) 99 Room Air 01/06/17 15:09 98.8 Orders Orders Basic Metabolic Panel (Bmp) (01/06/17 15:14) Complete Blood Count With Diff (01/06/17 15:14) Blood Culture (01/06/17 15:14) Wound Culture And Gram Stain (01/06/17 15:14) Case Management Consult (01/06/17 ) Asp:No Reaction To Dalbav/Vanc (Asp Crit (01/06/17 16:15) Asp: Does Not Meet Inpt Admit (Asp Crit: (01/06/17 16:15) Asp: Iv Antibiotics Admit Only (Asp Crit (01/06/17 16:15) Asp: Location Of Dalbav Admin (Asp Crit: (01/06/17 16:15) [facility] Information ([facility] (01/06/17 16:15) Dalbavancin Inj (Dalvance Inj) (01/06/17 16:12) Nile Bandage (01/06/17 16:12) Elevate (01/06/17 16:12) Document (01/06/17 16:12) Measurements (01/06/17 16:12) Morphine Inj (Morphine Inj) (01/06/17 16:30) Ondansetron Inj (Zofran Inj) (01/06/17 16:30) Labs Laboratory Tests Test 01/06/17 15:31 White Blood Count 7.2 TH/MM3 Red Blood Count 3.54 MIL/MM3 Hemoglobin 11.4 GM/DL Hematocrit 33.3 % Mean Corpuscular Volume 94.1 FL Mean Corpuscular Hemoglobin 32.2 PG Mean Corpuscular Hemoglobin Concent 34.2 % Red Cell Distribution Width 13.3 % Platelet Count 698 TH/MM3 Mean Platelet Volume 7.2 FL Neutrophils (%) (Auto) 68.8 % Lymphocytes (%) (Auto) 23.4 % Monocytes (%) (Auto) 4.8 % Eosinophils (%) (Auto) 2.2 % Basophils (%) (Auto) 0.8 % Neutrophils # (Auto) 5.0 TH/MM3 Lymphocytes # (Auto) 1.7 TH/MM3 Monocytes # (Auto) 0.3 TH/MM3 Eosinophils # (Auto) 0.2 TH/MM3 Basophils # (Auto) 0.1 TH/MM3 CBC Comment DIFF FINAL Differential Comment Blood Urea Nitrogen 9 MG/DL Creatinine 0.98 MG/DL Random Glucose 94 MG/DL Calcium Level 7.8 MG/DL Sodium Level 139 MEQ/L Potassium Level 3.8 MEQ/L Chloride Level 108 MEQ/L Carbon Dioxide Level 22.4 MEQ/L Anion Gap 9 MEQ/L Estimat Glomerular Filtration Rate 59 ML/MIN MDM Medical Decision Making Medical Screen Exam Complete: Yes Emergency Medical Condition: Yes Medical Record Reviewed: Yes Differential Diagnosis Healing wounds versus infectious wounds versus failed outpatient treatment versus insect bites versus contact dermatitis versus folliculitis versus impetigo Narrative Course 56 year old female presents most from for evaluation of worsening left lower extremity wounds despite antibiotic therapy. Patient does live in a homeless camp and complains of her antibiotic is questionable. She presents without any significant comorbidities. Her vital signs are stable. I discussed the patient my attending physician who agrees the patient is a candidate for Dalvance. Case management has been contacted. Patient has been educated on the medication and is in agreement to attempt this treatment. It is ordered. Wounds are cleansed. Patient will be discharged at this time. Diagnosis Primary Impression: Multiple open wounds of left lower extremity Qualified Codes: S81.802A - Unspecified open wound, left lower leg, initial encounter Additional Impression: Cellulitis of left leg Referrals: Infectious Disease Specialist Primary Care Physician Patient Instructions: Cellulitis (ED), Dalbavancin (By injection), General Instructions Additional Instructions: Keep the wounds clean and dry Follow-up with a primary care provider Return immediately with any acute worsening of symptoms Med/Other Pt SpecificInfo: No Change to Meds Disposition: 01 DISCHARGE HOME Condition: Stable Josee Sesay RODRI Jan 06, 2017 16:05
[2017-01-06 16:08] LABS: BICARBONATE 22.4 MEQ/L (21.0-32.0); POTASSIUM 3.8 MEQ/L (3.5-5.1)
[2017-01-06 16:10] VITALS: BP 129/75; PULSE 89; RESP 24; O2SAT 99
[2017-01-06] MEDS ORDERED: DALBAVANCIN INJ 1,500 MG in DEXTROSE 5% IN WATE 500 ML INJ 500 ML IV STA ×2 (16:12)
[2017-01-06] MEDS ORDERED: GABA300C5 PO (16:14)
[2017-01-06] MEDS ORDERED: ASP: Does not meet inpatient admission criteria OTHER ONE (16:15)
[2017-01-06] MEDS ORDERED: MISCELLANEOUS PHARMACY INFORMATION XX ONE (16:15)
[2017-01-06] MEDS ORDERED: ASP: Only reason for admit - IV antibiotics OTHER ONE (16:15)
[2017-01-06] MEDS ORDERED: ASP: No known hypersensitivity to Vanco, Telavancin, Dalbavancin OTHER ONE (16:15)
[2017-01-06] MEDS ORDERED: ASP: Location of Dalbavancin administration OTHER ONE (16:15)
[2017-01-06] MEDS ORDERED: ONDANSETRON HCL 4 MG/2 ML VIAL IV PUSH ONE (16:30)
[2017-01-06] MEDS ORDERED: MORPHINE SULFATE 2 MG/ML INJ IV PUSH ONE (16:30)
--- NOTE | 2017-01-06 16:37 | PD ---
Data Data Last Documented VS Vital Signs Date Time Temp Pulse Resp B/P (MAP) Pulse Ox O2 Delivery O2 Flow Rate FiO2 01/06/17 16:10 89 24 129/75 (93) 99 Room Air 01/06/17 15:09 98.8 Orders Orders Basic Metabolic Panel (Bmp) (01/06/17 15:14) Complete Blood Count With Diff (01/06/17 15:14) Blood Culture (01/06/17 15:14) Wound Culture And Gram Stain (01/06/17 15:14) Case Management Consult (01/06/17 ) Asp:No Reaction To Dalbav/Vanc (Asp Crit (01/06/17 16:15) Asp: Does Not Meet Inpt Admit (Asp Crit: (01/06/17 16:15) Asp: Iv Antibiotics Admit Only (Asp Crit (01/06/17 16:15) Asp: Location Of Dalbav Admin (Asp Crit: (01/06/17 16:15) [facility] Information ([facility] (01/06/17 16:15) Dalbavancin Inj (Dalvance Inj) (01/06/17 16:12) Nile Bandage (01/06/17 16:12) Elevate (01/06/17 16:12) Document (01/06/17 16:12) Measurements (01/06/17 16:12) Morphine Inj (Morphine Inj) (01/06/17 16:30) Ondansetron Inj (Zofran Inj) (01/06/17 16:30) Labs Laboratory Tests Test 01/06/17 15:31 White Blood Count 7.2 TH/MM3 Red Blood Count 3.54 MIL/MM3 Hemoglobin 11.4 GM/DL Hematocrit 33.3 % Mean Corpuscular Volume 94.1 FL Mean Corpuscular Hemoglobin 32.2 PG Mean Corpuscular Hemoglobin Concent 34.2 % Red Cell Distribution Width 13.3 % Platelet Count 698 TH/MM3 Mean Platelet Volume 7.2 FL Neutrophils (%) (Auto) 68.8 % Lymphocytes (%) (Auto) 23.4 % Monocytes (%) (Auto) 4.8 % Eosinophils (%) (Auto) 2.2 % Basophils (%) (Auto) 0.8 % Neutrophils # (Auto) 5.0 TH/MM3 Lymphocytes # (Auto) 1.7 TH/MM3 Monocytes # (Auto) 0.3 TH/MM3 Eosinophils # (Auto) 0.2 TH/MM3 Basophils # (Auto) 0.1 TH/MM3 CBC Comment DIFF FINAL Differential Comment Blood Urea Nitrogen 9 MG/DL Creatinine 0.98 MG/DL Random Glucose 94 MG/DL Calcium Level 7.8 MG/DL Sodium Level 139 MEQ/L Potassium Level 3.8 MEQ/L Chloride Level 108 MEQ/L Carbon Dioxide Level 22.4 MEQ/L Anion Gap 9 MEQ/L Estimat Glomerular Filtration Rate 59 ML/MIN MDM Supervised Visit with FREDERICK: Yes Narrative Course The history, exam, and medical decision-making in the associated mid-level provider note were completed with my assistance. I reviewed and agree with the findings presented. I attest that I had a [id number] encounter with the patient on the same day, and personally performed and documented my assessment and findings in the medical record. *My assessment and Findings: So 56-year-old woman who presents to the emergency department complaining of bilateral lower extremity infectious symptoms. She has widespread ulcerated cellulitic eschars in multiple different areas as well as several small areas of pustules. She's feeling outpatient Bactrim. Compliance is questionable. Does not appear septic. His a good candidate for dalbavancin. Khai Hernandez MD Jan 06, 2017 16:37
[2017-01-06] MEDS ORDERED: KETOROLAC TROMETHAMINE 30 MG/ML (IVP) VIAL IV PUSH ONE (17:45)
== END 2017-01-06 18:12 | disposition home or self-care (01) ==
LOC: NEPD 15:08
DX: L03.116 Cellulitis of left lower limb (principal); J44.9 Chronic obstructive pulmonary disease, unspecified; J45.909 Unspecified asthma, uncomplicated; F32.9 Major depressive disorder, single episode, unspecified; B19.20 Unspecified viral hepatitis C without hepatic coma; Z59.0 Homelessness; Z72.0 Tobacco use; Z79.899 Other long term (current) drug therapy
CPT/HCPCS: 80048; 85025; 86403; 87040; 87070; 87186; 96365; 96375; 99284; J0875; J1885; J2270; J2405; J7060

== ENCOUNTER 2017-01-11 11:36 | Emergency (ER) | payer SELFPAY ==
[~2017-01-11] VITALS: Ht 170.2 cm; Wt 50.0 kg
[2017-01-11 11:40] VITALS: BP 120/70; PULSE 84; RESP 14; TEMP 99; O2SAT 95
== END 2017-01-11 13:40 | disposition left against medical advice (07) ==
LOC: NED 11:36
DX: R23.9 Unspecified skin changes (principal); Z53.21 Procedure and treatment not carried out due to patient leaving prior to being seen by health care provider
CPT/HCPCS: 99281

== ENCOUNTER 2017-02-05 10:45 | Emergency (ER) | payer SELFPAY ==
[~2017-02-05] VITALS: Ht 170.2 cm; Wt 50.0 kg
[2017-02-05 10:47] VITALS: BP 117/81; PULSE 113; RESP 18; TEMP 98.6; O2SAT 97
--- NOTE | 2017-02-05 11:10 | PD ---
HPI Chief Complaint: Fall Time Seen by Provider: 11:02 Travel History International Travel<30 days: No Contact w/Intl Traveler<30days: No Traveled to known affect area: No History of Present Illness HPI 56-year-old female presents to emergency Department with complaint of bilateral eye pain, forehead pain, upper lip pain after tripping over a curb falling forward 4 days ago and landing flat on her face. Denies loss of consciousness. Reports epistaxis that has resolved. Denies dental trauma. Denies anticoagulant therapy. Denies neck pain, or back pain. Denies vomiting. Reports pain 10/10. Reports it as a shooting sensation in her face. Been taking gabapentin for pain. Has not tried any other treatments to alleviate her symptoms. Pain is constantly aggravated. No known allergies. Has no other medical complaints. No other modifying factors or associated signs and symptoms. PFSH Past Medical History Asthma: Yes Depression: Yes COPD: Yes Hepatitis: Yes (C) Migraines: Yes Past Surgical History Hysterectomy: Yes Social History Alcohol Use: Yes (COUPLE DRINKS/DAY) Tobacco Use: Yes (1/2 PPD) Substance Use: No Allergies-Medications (Allergen,Severity, Reaction): Coded Allergies: No Known Allergies (Unverified Adverse Reaction, Unknown, 02/05/17) Reported Meds & Prescriptions Reported Meds & Active Scripts Active Ibuprofen 800 Mg Tab 800 Mg PO Q6HR PRN Reported Gabapentin 300 Mg Cap 300 Mg PO TID Keppra (Levetiracetam) 500 Mg Tab 1,000 Mg PO BID Seroquel (Quetiapine Fumarate) 400 Mg Tab 500 Mg PO HS Review of Systems Except as stated in HPI: all other systems reviewed are Neg Physical Exam Narrative GENERAL: Well-nourished, well-developed female patient, in no acute distress; disheveled SKIN: Warm and dry. HEAD: Atraumatic. Normocephalic. Scabbed abrasion noted to nasal bridge. EYES: Pupils equal and round at 3 mm with brisk reaction. No scleral icterus. No injection or drainage. No raccoon eyes. Orbital tenderness on palpation bilaterally. ENT: Mucosa pink and moist. No erythema or exudates. No uvular edema. No uvular , palatal, or tonsillar deviation. Airway patent. Nares without nasal blood, purulent drainage or septal hematoma. Nasal bridge noted to have Right sided deviation; bilateral nares patent; swelling noted to the upper lip/base of nose. No rhinorrhea. EARS: Bilateral pinnae and external canals appear within normal limits. Bilateral tympanic membranes without erythema, dullness, hemotympanum or perforation. No otorrhea. No talbot signs. MOUTH: No dental trauma noted; poor dentition throughout and partially upper front edentulous noted. NECK: Moving freely. Trachea midline. No lymphadenopathy. Active rotation of the neck greater than 45 left and right. No midline point tenderness on palpation of the cervical spine. No obvious deformities. CHEST: No retractions or use of accessory muscles. CARDIOVASCULAR: Regular rate and rhythm. No murmur appreciated. RESPIRATORY: No accessory muscle use. Clear to auscultation. Breath sounds equal bilaterally. GASTROINTESTINAL: Abdomen soft, non-tender, nondistended. Hepatic and splenic margins not palpable. Bowel sounds are active 4 quadrants. MUSCULOSKELETAL: No obvious deformities. No clubbing. No cyanosis. No edema. BACK: No Point tenderness on palpation of the lumbar or thoracic spine. No obvious deformities. Patient sitting up in bed at 90. Ambulatory in the room with normal gait. NEUROLOGICAL: Awake and alert. Oriented 3. No obvious cranial nerve deficits. Motor grossly within normal limits. Normal speech. Moves all extremities. 5/5 strength to all extremities. Sensory intact. PSYCHIATRIC: Appropriate mood and affect; insight and judgment normal. Data Data Last Documented VS Vital Signs Date Time Temp Pulse Resp B/P (MAP) Pulse Ox O2 Delivery O2 Flow Rate FiO2 02/05/17 12:46 02/05/17 10:47 98.6 [address] Brain W/O Iv Contrast(Rout) (02/05/17 ) Ct Facial Bones W/O Iv Cont (02/05/17 ) Acetamin-Hydrocod 325-5 Mg ([place] 5-325 (02/05/17 11:15) Ed Discharge Order (02/05/17 12:37) [facility] Medical Decision Making Medical Screen Exam Complete: Yes Emergency Medical Condition: Yes Medical Record Reviewed: Yes Differential Diagnosis Fall, nasal bone fracture, facial contusion Narrative Course 56-year-old female with facial injury and suspected nasal bone fracture after mechanical trip and fall 4 days ago. Denies loss of consciousness. Denies anticoagulant therapy. Patient reports bilateral orbital tenderness on palpation on physical exam. No raccoon eyes. Bilateral nares patent. CT head and CT facial bones ordered. Lortab administered in the ER. 1234: CT head and facial bones concludes: Last [address] 02/05/17 0000 Signed Impressions: Service Date/Time: Sunday, February 05, 2017 11:29 - CONCLUSION: Fracture superior nasal spine. Gary Park MD FACR Head CT 02/05/17 0000 Signed Impressions: Service Date/Time: Sunday, February 05, 2017 11:26 - CONCLUSION: Intracranial contents unremarkable. Gary Park MD FACR CT reports discussed with the patient. Ibuprofen prescribed for home. Instructed patient to follow up with maxillofacial surgeon. Instructed patient to follow up with primary care provider. Patient verbalizes understanding and agreement with treatment plan. Patient is medically cleared and stable for discharge. Discussed reasons to return to the emergency department. Patient agrees with treatment plan. The patients vital signs are stable and the patient is stable for outpatient follow-up and treatment. Patient discharged home, stable and in no acute distress. Diagnosis Primary Impression: Nasal bone fracture Qualified Codes: S02.2XXA - Fracture of nasal bones, initial encounter for closed fracture Referrals: [facility] Oral Maxillofacial Surgeon Primary Care Physician Patient Instructions: General Instructions, Nasal Fracture (ED) Additional Instructions: Ibuprofen or Tylenol as instructed and as needed for pain and information Ice to affected area to reduce pain and inflammation Do not blow your nose or suck on straws Follow-up with oral maxillofacial surgeon Follow-up with primary care provider Return to the emergency department immediately with worsening of symptoms Med/Other Pt SpecificInfo: Prescription(s) given Scripts Ibuprofen (Ibuprofen) 800 Mg Tab 800 MG PO Q6HR Y for PAIN, #30 TAB 0 Refills Prov: Lillian Juárez 02/05/17 Disposition: DISCHARGE HOME Condition: Stable Lillian Juárez Feb 05, 2017 11:10
[2017-02-05] MEDS ORDERED: ACETAMINOPHEN/HYDROcodone 325 MG/5 MG TAB PO ONE (11:15)
--- NOTE | 2017-02-05 11:46 | RADRPT ---
EXAM DATE/TIME: 02/05/2017 11:29 [facility] COMPARISON: No previous studies available for comparison. INDICATIONS : Fall, injury to face. RADIATION DOSE: 32.76 CTDIvol (mGy) MEDICAL HISTORY : Hepatitis C. SURGICAL HISTORY : Hysterectomy. ENCOUNTER: Initial ACUITY: 4 - 6 days PAIN SCORE: 8/10 LOCATION: facial around nose. TECHNIQUE: Volumetric scanning of the facial bones was performed. Using automated exposure control and adjustme nt of the mA and/or kV according to patient size, radiation dose was kept as low as reasonably achiev able to obtain optimal diagnostic quality images. DICOM format image data is available [employer] for review and comparison. FINDINGS: ORBITS: The orbital and infraorbital osseous structures are intact. The retroconal structures have a normal configuration. No radiopaque foreign bodies are seen. NASAL BONE: The nasal bone and maxillary spine are intact ZYGOMATIC ARCHES: Symmetric without evidence of fracture. SINUSES: The maxillary, ethmoid and frontal sinuses are intact. No air-fluid levels seen. NASAL CAVITY: The nasal septum is intact and midline. The lacrimal ducts are intact. SOFT TISSUES: No radiopaque foreign bodies seen. No soft-tissue swelling is seen. INTRACRANIAL: No intracranial air seen. CRIBIFORM PLATE: Grossly intact. CONCLUSION: Fracture superior nasal spine. Gary Park MD FACR on February 05, 2017 at 11:44 Board Certified Radiologist. This report was verified electronically.
--- NOTE | 2017-02-05 11:46 | RADRPT ---
EXAM DATE/TIME: 02/05/2017 11:26 [facility] COMPARISON: CT BRAIN W/O CONTRAST, November 23, 2016, 18:23. INDICATIONS : Fall injury to face. RADIATION DOSE: 31.40 CTDIvol (mGy) MEDICAL HISTORY : Hepatitis C. SURGICAL HISTORY : Hysterectomy. ENCOUNTER: Initial ACUITY: 4 - 6 days PAIN SCALE: 8/10 LOCATION: cranial TECHNIQUE: Multiple contiguous axial images were obtained of the head. Using automated exposure control and adj ustment of the mA and/or kV according to patient size, radiation dose was kept as low as reasonably a chievable to obtain optimal diagnostic quality images. DICOM format image data is available electro nically for review and comparison. FINDINGS: CEREBRUM: The ventricles are normal for age. No evidence of midline shift, mass lesion, hemorrhage or acute in farction. No extra-axial fluid collections are seen. POSTERIOR FOSSA: The cerebellum and brainstem are intact. The 4th ventricle is midline. The cerebellopontine angle i s unremarkable. EXTRACRANIAL: The visualized portion of the orbits is intact. SKULL: The calvaria is intact. No evidence of skull fracture. CONCLUSION: Intracranial contents unremarkable. Gary Park MD FACR on February 05, 2017 at 11:43 Board Certified Radiologist. This report was verified electronically.
[2017-02-05] MEDS ORDERED: IBUP1TAB7 PO (12:36)
== END 2017-02-05 12:52 | disposition home or self-care (01) ==
LOC: NEPD 10:45
DX: S02.2XXA Fracture of nasal bones, initial encounter for closed fracture (principal); F32.9 Major depressive disorder, single episode, unspecified; J44.9 Chronic obstructive pulmonary disease, unspecified; F17.200 Nicotine dependence, unspecified, uncomplicated; W10.1XXA Fall (on)(from) sidewalk curb, initial encounter; Z79.899 Other long term (current) drug therapy; Z86.19 Personal history of other infectious and parasitic diseases
CPT/HCPCS: 70450; 70486

== ENCOUNTER 2017-04-12 08:04 | Emergency (ER) | payer BC ==
[~2017-04-12] VITALS: Ht 170.2 cm; Wt 52.0 kg
[~2017-04-12 08:04] MED LIST changes: +IBUP1TAB7 PO
[2017-04-12 08:06] VITALS: BP 152/104; PULSE 98; RESP 16; TEMP 98.7; O2SAT 99
--- NOTE | 2017-04-12 08:14 | PD ---
HPI Chief Complaint: Headache Time Seen by Provider: 08:13 Travel History International Travel<30 days: No Contact w/Intl Traveler<30days: No Traveled to known affect area: No History of Present Illness HPI 56-year-old female came to the emergency room with history of headache that started 1 week ago. Patient says it started over the left temporal area and spread across the entire frontal area of her head and goes to the other side. Vital signs are stable. Patient tells me that she usually does not get history of headaches but her past medical history was reported as migraine. Patient says that that probably was a mistake. She does not usually get headaches. She was really concerned since she is 56 years old and if she has a pain tumor that is causing the pain. She did not take any medications at home for this headache. No history of vomiting or diarrhea. No aggravating or relieving factors identified. [facility] Past Medical History Narrative Medical List of her past medical, surgical, social and family history is reviewed from the nursing note. Asthma: Yes Depression: Yes COPD: Yes Hepatitis: Yes (C) ?: Not Past Surgical History Hysterectomy: Yes Social History Alcohol Use: Yes (COUPLE DRINKS/DAY) Tobacco Use: Yes (2 PPD) Substance Use: No Allergies-Medications (Allergen,Severity, Reaction): Coded Allergies: No Known Allergies (Unverified Adverse Reaction, Unknown, 04/12/17) Comments No known drug allergies. Reported Meds & Prescriptions Reported Meds & Active Scripts Active Reported Gabapentin 300 Mg Cap 300 Mg PO TID Keppra (Levetiracetam) 500 Mg Tab 1,000 Mg PO BID Seroquel (Quetiapine Fumarate) 400 Mg Tab 500 Mg PO HS Narrative Medication List of her home medications reviewed from the nursing note. Review of Systems Except as stated in HPI: all other systems reviewed are Neg Neurologic: Positive: Headache Physical Exam Narrative GENERAL: Awake, alert, moderate distress SKIN: Focused skin assessment warm/dry. HEAD: Atraumatic. Normocephalic. EYES: Pupils equal and round. No scleral icterus. No injection or drainage. ENT: No nasal bleeding or discharge. Mucous membranes pink and moist. NECK: Trachea midline. No JVD. Neck supple, no rigidity CARDIOVASCULAR: Regular rate and rhythm. No murmur appreciated. RESPIRATORY: No accessory muscle use. Clear to auscultation. Breath sounds equal bilaterally. GASTROINTESTINAL: Abdomen soft, non-tender, nondistended. Hepatic and splenic margins not palpable. MUSCULOSKELETAL: No obvious deformities. No clubbing. No cyanosis. No edema. NEUROLOGICAL: Awake and alert. No obvious cranial nerve deficits. Motor grossly within normal limits. Normal speech. PSYCHIATRIC: Appropriate mood and affect; insight and judgment normal. Data Data Last Documented VS Vital Signs Date Time Temp Pulse Resp B/P (MAP) Pulse Ox O2 Delivery O2 Flow Rate FiO2 04/12/17 10:55 04/12/17 10:07 67 18 100 Room Air 04/12/17 08:06 98.7 Orders Orders Complete Blood Count With Diff (04/12/17 08:18) Basic Metabolic Panel (Bmp) (04/12/17 08:18) Ct Brain W/O Iv Contrast(Rout) (04/12/17 08:18) Ecg Monitoring (04/12/17 08:18) Iv Access Insert/Monitor (04/12/17 08:18) Oximetry (04/12/17 08:18) Sodium Chloride 0.9% Flush (Ns Flush) (04/12/17 08:30) Prochlorperazine Inj (Compazine Inj) (04/12/17 08:30) Sodium Chlor 0.9% 1000 Ml Inj (Ns 1000 M (04/12/17 08:18) Ed Discharge Order (04/12/17 09:48) Ketorolac Inj (Toradol Inj) (04/12/17 10:15) Labs Laboratory Tests Test 04/12/17 08:35 White Blood Count 6.4 TH/MM3 Red Blood Count 4.60 MIL/MM3 Hemoglobin 15.2 GM/DL Hematocrit 44.2 % Mean Corpuscular Volume 96.2 FL Mean Corpuscular Hemoglobin 33.1 PG Mean Corpuscular Hemoglobin Concent 34.4 % Red Cell Distribution Width 15.9 % Platelet Count 344 TH/MM3 Mean Platelet Volume 7.8 FL Neutrophils (%) (Auto) 69.2 % Lymphocytes (%) (Auto) 18.7 % Monocytes (%) (Auto) 9.4 % Eosinophils (%) (Auto) 1.8 % Basophils (%) (Auto) 0.9 % Neutrophils # (Auto) 4.4 TH/MM3 Lymphocytes # (Auto) 1.2 TH/MM3 Monocytes # (Auto) 0.6 TH/MM3 Eosinophils # (Auto) 0.1 TH/MM3 Basophils # (Auto) 0.1 TH/MM3 CBC Comment DIFF FINAL Differential Comment Blood Urea Nitrogen 12 MG/DL Creatinine 0.93 MG/DL Random Glucose 91 MG/DL Calcium Level 8.6 MG/DL Sodium Level 140 MEQ/L Potassium Level 3.7 MEQ/L Chloride Level 110 MEQ/L Carbon Dioxide Level 24.2 MEQ/L Anion Gap 6 MEQ/L Estimat Glomerular Filtration Rate 62 ML/MIN MDM Medical Decision Making Medical Screen Exam Complete: Yes Emergency Medical Condition: Yes Medical Record Reviewed: Yes Differential Diagnosis Migraine headache, headache NOS Narrative Course 10:01 AM patient was given IV Compazine and IV fluid for her headache. Blood test results and CAT scan came back and within normal limit. I'm comfortable discharging her home. I went back and reassessed her and she says is still there but better than before. Procedures EKG Prior to Arrival: No Diagnosis Primary Impression: Headache Qualified Codes: R51 - Headache Referrals: Primary Care Physician Additional Instructions: Take the medication as per the prescription direction. Do not watch television , computer screen or Smart phone that would stimulate her eyes and make the headache worse. Do not drink wine, alcohol, chocolate till the symptoms get better. Coffee or caffeinated beverages will make your headache better. Return to the ER if the condition worsens or any other new concerns. Med/Other Pt SpecificInfo: Prescription(s) given Disposition: DISCHARGE HOME Condition: Stable Luis Sheppard MD Apr 12, 2017 08:14
[2017-04-12] MEDS ORDERED: SODIUM CHLOR 0.9% 1000 ML INJ 1,000 ML IV ONE (08:18)
[2017-04-12] MEDS ORDERED: SODIUM CHLORIDE 0.9% FLUSH 10 ML FLUSH IVF PRN (08:30)
[2017-04-12] MEDS ORDERED: PROCHLORPERAZINE INJ 10 MG/2 ML VIAL IVP ONE (08:30)
[2017-04-12 08:51] LABS: AUTOMATED NEUTROPHIL # 4.4 TH/MM3 (1.8-7.7); BASOPHIL # 0.1 TH/MM3 (0-0.2); BASOPHIL % 0.9 % (0.0-2.0); EOSINOPHIL # 0.1 TH/MM3 (0-0.4); EOSINOPHIL % 1.8 % (0.0-4.0); HEMATOCRIT 44.2 % (35.0-46.0); HEMOGLOBIN 15.2 GM/DL (11.6-15.3); LYMPH % 18.7 % (9.0-44.0); LYMPHOCYTE # 1.2 TH/MM3 (1.0-4.8); MEAN CELL VOLUME 96.2 FL (80.0-100.0); MEAN CORPUSCULAR HEMOGLOBIN 33.1 PG (27.0-34.0); MEAN CORPUSCULAR HGB CONC 34.4 % (32.0-36.0); MEAN PLATELET VOLUME 7.8 FL (7.0-11.0); MONO % 9.4 % (0.0-8.0); MONOCYTE # 0.6 TH/MM3 (0-0.9); NEUT % 69.2 % (16.0-70.0); PLATELET COUNT 344 TH/MM3 (150-450); RED CELL DISTRIBUTION WIDTH 15.9 % (11.6-17.2); WHITE BLOOD COUNT 6.4 TH/MM3 (4.0-11.0)
[2017-04-12 09:10] LABS: BICARBONATE 24.2 MEQ/L (21.0-32.0); CALCIUM 8.6 MG/DL (8.5-10.1); CREATININE 0.93 MG/DL (0.50-1.00)
--- NOTE | 2017-04-12 09:40 | RADRPT ---
EXAM DATE/TIME: 04/12/2017 08:59 [facility] COMPARISON: CT BRAIN W/O CONTRAST, February 05, 2017, 11:26. INDICATIONS : Cephalgia status post fall last night. RADIATION DOSE: 52.13 CTDIvol (mGy) MEDICAL HISTORY : Hepatitis C. SURGICAL HISTORY : Hysterectomy. ENCOUNTER: Initial ACUITY: 1 day PAIN SCALE: 8/10 LOCATION: Bilateral head TECHNIQUE: Multiple contiguous axial images were obtained of the head. Using automated exposure control and adj ustment of the mA and/or kV according to patient size, radiation dose was kept as low as reasonably a chievable to obtain optimal diagnostic quality images. DICOM format image data is available electro nically for review and comparison. FINDINGS: The appearance of the brain is stable. There is mild generalized enlargement of the CSF spaces and mi ld central atrophy which appear stable. There are no characteristic findings of acute infarct, hemorrhage mass or edema. There are no extra-axial fluid collections. Calvarium is intact CONCLUSION: Stable exam without evidence of acute infarct, hemorrhage, mass or edema. Joe Payne MD on April 12, 2017 at 9:33 Board Certified Radiologist. This report was verified electronically.
[2017-04-12] MEDS ORDERED: BUTA1CAP PO (09:59)
[2017-04-12 10:07] VITALS: BP 184/99; PULSE 67; RESP 18; O2SAT 100
[2017-04-12] MEDS ORDERED: KETOROLAC TROMETHAMINE 30 MG/ML (IVP) VIAL IV PUSH ONE (10:15)
== END 2017-04-12 10:56 | disposition home or self-care (01) ==
LOC: NEPE 08:04
DX: R51 Headache (principal); F32.9 Major depressive disorder, single episode, unspecified; J44.9 Chronic obstructive pulmonary disease, unspecified; F17.200 Nicotine dependence, unspecified, uncomplicated; Z86.19 Personal history of other infectious and parasitic diseases; Z79.899 Other long term (current) drug therapy
CPT/HCPCS: 70450; 80048; 85025; 96361; 96374; 96375; 99284; J0780; J1885; J7030